=== PATIENT | female | born 1995 | race Caucasian/White ===

== ENCOUNTER 2018-03-17 05:42 | Outpatient (CLI) | payer SELFPAY ==
[~2018-03-17] VITALS: Ht 154.9 cm; Wt 82.6 kg
[~2018-03-17 05:42] MED LIST: ACHD5005 PO; CEPH500C PO; DCS100C PO; Ibuprofen PO; SMT80CT PO
[2018-03-25] MEDS ORDERED: IBUP-844 PO (08:36)
[2018-03-25] MEDS ORDERED: ACHD5005 PO (08:36)
== END 2018-03-17 12:00 ==
LOC: PREOP 05:42
PROVIDERS: ATTEND Obstetrics & Gynecology
DX: Z01.818 Encounter for other preprocedural examination (principal)

== ENCOUNTER 2018-03-23 06:02 | Inpatient (IN) | payer OTHER ==
[~2018-03-23] VITALS: Ht 154.9 cm; Wt 80.7 kg
[~2018-03-23 06:02] MED LIST changes: +CITRIC ACID/SOB CIT (BICITRA) 30 ML UDC ONE; +LACTATED RINGERS 1,000 ML IV ONE; +METOCLOPRAMIDE INJ 10 MG/2 ML (REGLAN) ONE; +NS (IVPB) 50 ML ONE; +ceFAZolin 1,000 MG (ANCEF) VIAL ONE; +raNItidine 50 MG/2 ML INJ (ZANTAC) ONE
--- OUTSIDE RECORDS SUMMARY | 2018-03-23 06:06 | XMS REPORT ---
Author Author AYALA CHAVIS [facility] Address [address] [place] [address] Care Team Providers Care Reflexologist Name Role Phone AYALA CHAVIS Unavailable PROBLEMS Type Condition ICD9-CM Code BXD23-JE Code Onset Dates Condition Status SNOMED Code Problem Supervision of normal first V22.0 Active 592584229 Problem Insufficient care V23.7 Active 9091460575591 Problem DTAP TEST V06.1 Active Problem Screening examination for venereal disease V74.5 Active 207161634 ALLERGIES No Information ENCOUNTERS Encounter Location Date Diagnosis [place] [id number] [place] [address] 66367- 7099 Feb, Third trimester Z33.1 [facility] [id number] [place] [address] 58695- 2005 Feb, Encounter for supervision of normal in third trimester Z34.93 [place] [id number] [place] [address] 65862- 6400 Feb, Third trimester Z33.1 [facility] [id number] [place] [address] 00909- 7576 January, Normal in multigravida Z34.80 [facility] [id number] [place] [address] 54176- 8738 January, Normal first in third trimester Z34.03 and Encounter for immunization Z23 [place] [id number] [place] [address] 50367- 5154 Dec, Normal in multigravida Z34.80 [place] [id number] [place] [address] 87724- 4425 Dec, care in second trimester Z34.92 [facility] [address] [address] 7969 Nov, Normal in multigravida Z34.80 [facility] [address] [address] 5661 Oct, [facility] [address], [place] [address]- 0201 Oct, [facility] [id number] [place] [address] 70433- 7608 Oct, [facility] [id number] [place] [address] 84948- 3072 Oct, DTAP TEST V06.1 ; Normal in multigravida Z34.80 and care in second trimester Z34.92 [facility] [address], [place] [address] 4389 Oct, [facility] [address] [address]- 6923 Oct, Encounter for test Z32.00 [facility] [address] [address]- 7937 Feb, [facility] [address], [place] [address]- 3216 Feb, [facility] [address], [place] [address]- 0827 Feb, [facility] [address], [place] [address]- 6317 Feb, [facility] [id number] [address]- 9085 Feb, [facility] [address], [place] [address]- 3271 Feb, [facility] [address], [place] [address]- 7765 January, [facility] [address] [id number] [place] [address]- 5617 January, [facility] [place] [facility] [address] [id number] [place] [address]- 6272 January, [facility] [place] [facility] [address] [id number] [place] January, [facility] [place] [facility] [address] [id number] [place] [address]- 7333 January, [facility] [place] [facility] [address] [id number] [place] [address]- 3843 January, [facility] [place] [facility] [address] [id number] [place] [address]- 3578 January, [facility] [place] [facility] [address] [id number] [place] [address]- 6832 January, [facility] [place] [facility] [address] [id number] [place] [address]- 0447 January, [facility] [place] [facility] [address] [id number] [place] [address]- 3413 Dec, [facility] [place] [facility] [address] [id number] [place] [address]- 9138 Dec, [facility] [place] [facility] [address] [id number] [place] [address]- 2699 Dec, [facility] [place] [facility] [address] [id number] [place] [address]- 9914 Dec, [facility] [place] [facility] [address] [id number] [place] [address]- 4391 Nov, [facility] [place] [facility] [address] [id number] [place] [address]- 0126 Nov, [facility] [place] [facility] [address] [id number] [place] [address]- 2690 Nov, [facility] [place] [facility] [address] [id number] [address]- 1345 Nov, [facility] [address] [id number] [place] [address]- 8326 Oct, [facility] [address] [id number] [place] 9766 Oct, [facility] [address] [facility] [id number] [place] [address]- 2296 Oct, [facility] [address] [id number] [place] [address]- 0581 Oct, [facility] [address] [id number] [place] [address]- 9500 Sep, [facility] [address] [facility] [id number] [place] [address]- 6352 Sep, [facility] [address] [facility] [id number] [place] [address]- 1980 Sep, [facility] [address] [id number] [place] [address]- 9007 Sep, [facility] [address] [facility] [id number] [place] [address]- 4496 Sep, [facility] [address] [facility] [id number] [place] [address]- 9740 Sep, [facility] [address] [facility] [id number] [place] [address]- 1212 Sep, [facility] [address] [id number] [address]- 6948 Sep, [facility] [address] [id number] [place] [address]- 7502 Sep, [facility] [address] [facility] [id number] [address]- 4901 Sep, [facility] [address] [facility] [id number] [address]- 1639 Sep, IMMUNIZATIONS No Known Immunizations SOCIAL HISTORY Never Assessed REASON FOR VISIT PLAN OF CARE VITAL SIGNS MEDICATIONS Unknown Medications RESULTS No Results PROCEDURES No Known procedures INSTRUCTIONS MEDICATIONS ADMINISTERED No Known Medications MEDICAL (GENERAL) HISTORY Type Description Date Surgical History 02/2014 Hospitalization History childbirth
--- OUTSIDE RECORDS SUMMARY | 2018-03-23 06:06 | XMS REPORT ---
Author Author AYALA CHAVIS [facility] Address [address] [place] [address] Care Team Providers Care Control Board Operator Name Role Phone AYALA CHAVIS Unavailable PROBLEMS Type Condition ICD9-CM Code KAY55-AD Code Onset Dates Condition Status SNOMED Code Problem Supervision of normal first V22.0 Active 369593390 Problem Insufficient care V23.7 Active 4413781021488 Problem DTAP TEST V06.1 Active Problem Screening examination for venereal disease V74.5 Active 083312531 ALLERGIES No Information ENCOUNTERS Encounter Location Date Diagnosis [place] [id number] [place] [address] 87467- 5680 Feb, Third trimester Z33.1 [facility] [id number] [place] [address] 40976- 5049 Feb, Encounter for supervision of normal in third trimester Z34.93 [place] [id number] [place] [address] 33963- 2957 Feb, Third trimester Z33.1 [facility] [id number] [place] [address] 53438- 3900 January, Normal in multigravida Z34.80 [facility] [id number] [place] [address] 45179- 4867 January, Normal first in third trimester Z34.03 and Encounter for immunization Z23 [place] [id number] [place] [address] 41721- 6049 Dec, Normal in multigravida Z34.80 [place] [id number] [place] [address] 30954- 2207 Dec, care in second trimester Z34.92 [facility] [address], [place] [address]- 7547 Nov, Normal in multigravida Z34.80 [facility] [address], [place] [address]- 8566 Oct, [facility] [address], [place] [address]- 4725 Oct, [facility] [id number] [place] [address] 78284- 0052 Oct, [facility] [address] [place] [address] 42079- 8404 Oct, DTAP TEST V06.1 ; Normal in multigravida Z34.80 and care in second trimester Z34.92 [facility] [address], [place] [address]- 7949 Oct, [facility] [address], [place] [address]- 6137 Oct, Encounter for test Z32.00 [facility] [id number], [place] [address]- 8597 Feb, [facility] [address], [place] [address]- 3486 Feb, [facility] [address], [place] [address]- 3830 Feb, [facility] [address], [place] [address]- 6963 Feb, [facility] [id number], [place] [address]- 1590 Feb, [facility] [address], [place] [address]- 0410 Feb, [facility] [address], [place] [address]- 4705 January, [facility] [address] [id number] [place] [address]- 7445 January, [facility] [place] [facility] [address] [id number] [place] [address]- 2056 January, [facility] [place] [facility] [address] [id number] [place] 7086 January, [facility] [place] [facility] [address] [id number] [place] [address]- 1312 January, [facility] [place] [facility] [address] [id number] [place] [address]- 7248 January, [facility] [place] [facility] [address] [id number] [place] [address]- 5491 January, [facility] [place] [facility] [address] [id number] [place] [address]- 9703 January, [facility] [place] [facility] [address] [id number] [place] [address]- 3209 January, [facility] [place] [facility] [address] [id number] [place] [address]- 3283 Dec, [facility] [place] [facility] [address] [id number] [place] [address]- 8004 Dec, [facility] [place] [facility] [address] [id number] [place] [address]- 4161 Dec, [facility] [place] [facility] [address] [id number] [place] [address]- 5057 Dec, [facility] [place] [facility] [address] [id number] [place] [address]- 6407 Nov, [facility] [place] [facility] [address] [id number] [place] [address]- 1795 Nov, [facility] [place] [facility] [address] [id number] [place] [address]- 1865 Nov, [facility] [place] [facility] [address] [id number], [place] [address]- 9073 Nov, [facility] [address] [id number] [place] [address]- 4546 Oct, [facility] [address] [id number] [place] 2836 Oct, [facility] [address] [facility] [id number] [place] [address]- 6966 Oct, [facility] [address] [id number] [place] [address]- 0394 Oct, [facility] [address] [id number] [place] [address]- 5857 Sep, [facility] [address] [facility] [id number] [place] [address]- 9984 Sep, [facility] [address] [facility] [id number] [place] [address]- 5449 Sep, [facility] [address] [id number] [place] [address]- 8318 Sep, [facility] [address] [facility] [id number] [place] [address]- 0177 Sep, [facility] [address] [facility] [id number] [place] [address]- 1206 Sep, [facility] [address] [facility] [id number] [place] [address]- 5326 Sep, [facility] [address] [id number], [place] [address]- 1233 Sep, [facility] [address] [id number] [place] [address]- 3706 Sep, [facility] [address] [facility] [id number], [place] [address]- 6245 Sep, [facility] [address] [facility] [id number], [place] [address]- 8004 Sep, IMMUNIZATIONS No Known Immunizations SOCIAL HISTORY Never Assessed REASON FOR VISIT rx from lab results PLAN OF CARE VITAL SIGNS MEDICATIONS Medication Instructions Dosage Frequency Start Date End Date Duration Status Macrobid 100 mg Orally every 12 hrs 1 capsule with food 12h Oct, Oct, 7 day(s) Active RESULTS No Results PROCEDURES No Known procedures INSTRUCTIONS MEDICATIONS ADMINISTERED No Known Medications MEDICAL (GENERAL) HISTORY Type Description Date Surgical History 02/2014 Hospitalization History childbirth
--- OUTSIDE RECORDS SUMMARY | 2018-03-23 06:07 | XMS REPORT ---
Author Author RM VALADEZ [facility] Address [address] [place] [address] Care Team Providers Care Administration Physician Name Role Phone RORY RM Unavailable PROBLEMS Type Condition ICD9-CM Code RRX15-LP Code Onset Dates Condition Status SNOMED Code Problem Supervision of normal first V22.0 Active 026093147 Problem Insufficient care V23.7 Active 8028233234280 Problem DTAP TEST V06.1 Active Problem Screening examination for venereal disease V74.5 Active 203236372 ALLERGIES No Information ENCOUNTERS Encounter Location Date Diagnosis [place] [id number] [place] [address] 45529- 6696 Mar, [place] [id number] [place] [address] 81045- 8205 Feb, Third trimester Z33.1 [place] [address] [address]74- 7392 Feb, Encounter for supervision of normal in third trimester Z34.93 [place] [id number] [address]- 4358 Feb, Third trimester Z33.1 [place] [id number] [place] [address] 83414- 8836 January, Normal in multigravida Z34.80 [place] [address] 97847- 3543 January, Normal first in third trimester Z34.03 and Encounter for immunization Z23 [place] [id number] [place] [address] 61240- 0698 Dec, Normal in multigravida Z34.80 [place] [address] [address]- 4062 Dec, care in second trimester Z34.92 [facility] [address], [place] [address]- 7908 Nov, Normal in multigravida Z34.80 [facility] [address], [place] [address]- 6156 Oct, [facility] [address], [place] [address]- 1535 Oct, [facility] [address], [place] [address]- 0632 Oct, [facility] [address], [place] [address]- 7786 Oct, DTAP TEST V06.1 ; Normal in multigravida Z34.80 and care in second trimester Z34.92 [facility] [address], [place] [address]- 7438 Oct, [facility] [address], [place] [address]- 1524 Oct, Encounter for test Z32.00 [facility] [address], [place] [address]- 0415 Feb, [facility] [address], [place] [address]- 5376 Feb, [facility] [address], [place] [address]- 7178 Feb, [facility] [address], [place] [address]- 0465 Feb, [facility] [address], [place] [address]- 5771 Feb, [facility] [address], [place] [address]- 0628 Feb, [facility] [place] [facility] [address] [id number] [place] [address]- 5379 January, [facility] [address] [id number] [place] [address]- 7869 January, [facility] [address] [id number] [place] [address]- 1863 January, [facility] [address] [id number] [place] [address]- 7389 January, [facility] [address] [id number] [place] [address]- 1464 January, [facility] [address] [id number] [place] [address]- 9229 January, [facility] [address] [id number] [place] [address]- 6725 January, [facility] [address] [id number] [place] [address]- 1842 January, [facility] [address] [id number] [place] [address]- 6554 January, [facility] [address] [id number] [place] [address]- 9194 Dec, [facility] [place] [facility] [address] [id number] [place] [address]- 8928 Dec, [facility] [place] [facility] [address] [id number] [place] [address]- 1887 Dec, [facility] [place] [facility] [address] [id number] [place] [address]- 7043 Dec, [facility] [place] [facility] [address] [id number] [place] [address]- 1756 Nov, [facility] [place] [facility] [address] [id number] [place] [address]- 1091 Nov, [facility] [place] [facility] [address] [id number] [place] [address]- 2948 Nov, [facility] [address] [id number] [place] [address]- 2748 Nov, [facility] [place] [facility] [address] [id number] [place] [address]- 9067 Oct, [facility] [place] [facility] [address] [id number] [place] [address]- 2335 Oct, [facility] [place] [facility] [address] [id number] [place] [address]- 0944 Oct, [facility] [place] [facility] [address] [id number] [place] [address]- 3553 Oct, [facility] [place] [facility] [address] [id number] [place] [address]- 8830 Sep, [facility] [address] [id number] [place] [address]- 9749 Sep, [facility] [place] [facility] [address] [id number] [place] [address]- 0938 Sep, [facility] [place] [facility] [address] [id number] [place] [address]- 4805 Sep, [facility] [place] [facility] [address] [id number] [place] [address]- 7234 Sep, [facility] [place] [facility] [address] [id number] [place] [address]- 5674 Sep, [facility] [place] [facility] [address] [id number] [place] [address]- 0143 Sep, [facility] [place] [facility] [address] [id number] [place] [address]- 2602 Sep, [facility] [place] [facility] [address] [id number] [place] [address]- 8560 Sep, [facility] [place] [facility] [address] [id number] [place] [address]- 9258 Sep, [facility] [place] [facility] [address] [facility] [id number] [place] [address]- 4073 Sep, IMMUNIZATIONS No Known Immunizations SOCIAL HISTORY Never Assessed REASON FOR VISIT test (walk-in)--[facility] PLAN OF CARE VITAL SIGNS MEDICATIONS Unknown Medications RESULTS Name Result Date Reference Range TEST, URINE (IN HOUSE) 2017-10-21 RESULTS POSITIVE Lot # [id number] Control + Exp date 01/2019 PROCEDURES Procedure Date Ordered Result Body Site URINE TEST Oct 21, 2017 INSTRUCTIONS MEDICATIONS ADMINISTERED No Known Medications MEDICAL (GENERAL) HISTORY Type Description Date Surgical History 02/2014 Hospitalization History childbirth
--- OUTSIDE RECORDS SUMMARY | 2018-03-23 06:07 | XMS REPORT ---
Author Author AYALA CHAVIS [facility] Address [address] [place] [address] Care Team Providers Care Ibm Mainframe Systems Programmer Name Role Phone AYALA CHAVIS Unavailable PROBLEMS Type Condition ICD9-CM Code [id number] Code Onset Dates Condition Status SNOMED Code Problem Supervision of normal first V22.0 Active 610402822 Problem Insufficient care V23.7 Active 3715015385601 Problem DTAP TEST V06.1 Active Problem Screening examination for venereal disease V74.5 Active 736490735 ALLERGIES No Known Allergies ENCOUNTERS Encounter Location Date Diagnosis [place] [address] [address] Feb, Third trimester Z33.1 [facility] [address] [address] Feb, Encounter for supervision of normal in third trimester Z34.93 [place] [address] [place] [id number] [place] [address]- [address] Feb, Third trimester Z33.1 [facility] [address] [place] [id number] [place] [address] January, Normal in multigravida Z34.80 [facility] [address] [place] [id number] [place] [address] 2020[address]- 2297 January, Normal first in third trimester Z34.03 and Encounter for immunization Z23 [place] [address] [place] [id number] [place] [address] Dec, Normal in multigravida Z34.80 [place] [address] [place] [id number] [place] [address]- 5393 Dec, care in second trimester Z34.92 [facility] [address], [place] [address] Nov, Normal in multigravida Z34.80 [facility] [address], [place] [address] Oct, [facility] [address], [place] [address] Oct, [facility] [address], [place] [address] Oct, [facility] [address] [place] [address]- 5585 Oct, DTAP TEST V06.1 ; Normal in multigravida Z34.80 and care in second trimester Z34.92 [facility] [address], [place] [address] Oct, [facility] [address], [place] [address] 9[address] Oct, Encounter for test Z32.00 [facility] [address], [place] [address] Feb, [facility] [address], [place] [address] 100[address] Feb, [facility] [address], [place] [address] 9[address] Feb, [facility] [address], [place] [address]- 47[address] Feb, [facility] [address], [place] [address] 7237 Feb, [facility] [address], [place] [address] 9897 Feb, [facility] [address], [place] [address] January, [facility] [address] [id number] [place] [address] 487[address] January, [facility] [place] [facility] [address] [id number] [place] [address]- 9617 January, [facility] [place] [facility] [address] [id number] [place] [address] January, [facility] [place] [facility] [address] [id number] [place] [address]- 2412 January, [facility] [place] [facility] [address] [id number] [place] [address] January, [facility] [place] [facility] [address] [id number] [place] [address]- 477[address] January, [facility] [place] [facility] [address] [id number] [place] [address]- 2862 January, [facility] [place] [facility] [address] [id number] [place] [address]- 7248 January, [facility] [place] [facility] [address] [id number] [place] [address]- 0713 Dec, [facility] [place] [facility] [address] [id number] [place] [address]- 5044 Dec, [facility] [place] [facility] [address] [id number] [place] [address]- 4234 Dec, [facility] [place] [facility] [address] [id number] [place] [address]- 2197 Dec, [facility] [place] [facility] [address] [id number] [place] [address]- 5578 Nov, [facility] [place] [facility] [address] [id number] [place] [address]- 8985 Nov, [facility] [place] [facility] [address] [id number] [place] [address]- 1062 Nov, [facility] [place] [facility] [address] [id number] [place] [address]- 7345 Nov, [facility] [address] [id number] [place] [address]- 7616 Oct, [facility] [address] [id number] [place] [address]- 9416 Oct, [facility] [address] [id number] [place] [address]- 7726 Oct, [facility] [address] [id number] [place] [address]- 6979 Oct, [facility] [address] [id number] [place] [address]- 2359 Sep, [facility] [address] [id number] [place] [address]- 5038 Sep, [facility] [address] [id number] [place] [address]- 4657 Sep, [facility] [address] [id number] [place] [address]- 4538 Sep, [facility] [address] [id number] [place] [address]- 0[address] Sep, [facility] [address] [facility] [id number] [place] [address]- 1361 Sep, [facility] [address] [id number] [place] [address]- 6269 Sep, [facility] [address] [id number], [place] [address]- 3699 Sep, [facility] [address] [id number] [place] [address]- 7454 Sep, [facility] [address] [id number] [place] [address]- 3408 Sep, [facility] [address] [id number] [address]- [address]68 Sep, IMMUNIZATIONS No Known Immunizations SOCIAL HISTORY Never Assessed REASON FOR VISIT OB Flowsheet History--tcuppettRN PLAN OF CARE VITAL SIGNS MEDICATIONS Unknown Medications RESULTS No Results PROCEDURES No Known procedures INSTRUCTIONS MEDICATIONS ADMINISTERED No Known Medications MEDICAL (GENERAL) HISTORY Type Description Date Surgical History 02/2014 Hospitalization History childbirth
--- OUTSIDE RECORDS SUMMARY | 2018-03-23 06:07 | XMS REPORT | Continuity of Care Document ---
Author Author [facility] Address Unknown Phone Unavailable Allergies Active Description Code Type Severity Reaction Onset Reported/Identified Relationship to Patient Clinical Status Yes No Known Drug Allergies [id number] Drug Allergy Unknown N/A 03/17/2018 Medications There is no data. Problems Date Dx Coded Attending Type Code Diagnosis Diagnosed By 09/20/2013 NISHANT BUSTILLO APRN A V23.7 , HIGH RISK W/ INSUFFICIENT CARE 09/20/2013 DMITRY BUSTILLO APRNIDI A V23.7 , HIGH RISK W/ INSUFFICIENT CARE 09/20/2013 DMITRY BUSTILLO APRNIDI A V23.7 , HIGH RISK W/ INSUFFICIENT CARE 09/20/2013 EZE VALADEZ DOA K V23.7 , HIGH RISK W/ INSUFFICIENT CARE 09/20/2013 EZE VALADEZ DOA K V23.7 , HIGH RISK W/ INSUFFICIENT CARE 09/20/2013 EZE VALADEZ DOA K V23.7 , HIGH RISK W/ INSUFFICIENT CARE 09/20/2013 PARTHA SIDDIQI, AYALA Orozco V23.7 , HIGH RISK W/ INSUFFICIENT CARE 09/20/2013 EZE VALADEZ DOA K V23.7 , HIGH RISK W/ INSUFFICIENT CARE 10/04/2013 DMITRY BUSTILLO APRNIDI A V74.5 STD SCREEN 10/04/2013 IWONA SOTOMAYOR NISHANT A V74.5 STD SCREEN 10/04/2013 RORY NICOLAS RM K V74.5 STD SCREEN 10/04/2013 EZE VALADEZ DOA K V74.5 STD SCREEN 10/04/2013 EZE VALADEZ DOA K V74.5 STD SCREEN 10/04/2013 AYALA CHAVIS MD V74.5 STD SCREEN 10/04/2013 EZE VALADEZ DOA K V74.5 STD SCREEN 11/01/2013 RORY NICOLAS RM K V22.0 , NORMAL FIRST 11/01/2013 EZE VALADEZ DOA K V22.0 , NORMAL FIRST 11/01/2013 AYALA CHAVIS MD V22.0 , NORMAL FIRST 11/01/2013 EZE VALADEZ DOA Pawel V22.0 , NORMAL FIRST 12/20/2013 RM VALADEZ DO V06.1 TDAP DX 12/20/2013 PARTHA SIDDIQI, AYALA Orozco V06.1 TDAP DX 12/20/2013 RORY NICOLASRM V06.1 TDAP DX 04/17/2015 NISHANT BUSTILLO SYSTEMS TEST ENGINEER Ot V23.7 04/17/2015 IWONA, NISHANT A SYSTEMS TEST ENGINEER Ot V28.89 04/17/2015 DMITRY BUSTILLOIDI A SYSTEMS TEST ENGINEER Ot V23.7 04/17/2015 NISHANT BUSTILLO SYSTEMS TEST ENGINEER Ot V28.89 03/10/2018 AYALA CHAVIS MD, Ot Z34.93 ENCNTR FOR SUPRVSN OF NORMAL PREG, UNSP, 03/10/2018 AYALA CHAVIS MD, Ot Z3A.35 35 WEEKS GESTATION OF 03/10/2018 AYALA CHAVIS MD, Ot O99.89 OTH DISEASES AND CONDITIONS COMPL PREG/C 03/10/2018 AYALA CHAVIS MD, Ot Z3A.35 35 WEEKS GESTATION OF 03/10/2018 AYALA CHAVIS MD, Ot O99.89 OTH DISEASES AND CONDITIONS COMPL PREG/C 03/10/2018 AYALA CHAVIS MD Ot R10.2 PELVIC AND PERINEAL PAIN 03/10/2018 AYALA CHAVIS MD, Ot Z3A.35 35 WEEKS GESTATION OF 03/18/2018 MOHINDER CASTLE DO Ot Z01.818 ENCOUNTER FOR OTHER PREPROCEDURAL EXAMIN Procedures Code [place] [address] UA OB DIP 09/20/2013 28639 US OB - COMPLETE >14 WEEKS 09/20/2013 34892 UA OB DIP 10/04/2013 87031 ROUTINE VENIPUNCTURE 10/05/2013 71598 CULTURE URINE 10/05/2013 TETRA TETRA SCREEN 10/06/2013 12483 US OB - FOLLOW UP 10/10/2013 58454 GC/CHLAM URINE (STATE) 10/10/2013 26638 ROUTINE VENIPUNCTURE 11/29/2013 59169 UA OB DIP 11/29/2013 74330 CBC 11/29/2013 65060 GLUCOSE AKIRA 1 HOUR 11/29/2013 11234 UA OB DIP 12/20/2013 51903 UA OB DIP 01/03/2014 30758 UA OB DIP 01/17/2014 84950 UA OB DIP 01/31/2014 24416 CULTURE GROUP B STREP VAG 02/02/2014 45868 UA OB DIP 02/07/2014 97816 UA OB DIP 02/14/2014 81081 UA OB DIP 02/21/2014 Results Test Result Range TSH - 10/27/17 16:28 TSH 1.02 mIU/L NRG RUBELLA IMMUNE STATUS - 10/27/17 16:28 RUBELLA ANTIBODY (IGG) 3.15 index NRG CULTURE, GENITAL - 10/27/17 16:28 CULTURE, GENITAL SEE NOTE NRG GLUCOSE AKIRA 1 HOUR - 12/22/17 16:08 GLUCOSE, POSTPRANDIAL/ 1 HOUR 104 mg/dL See Note: CBC - 12/22/17 16:08 WHITE BLOOD CELL COUNT 7.7 Thousand/uL 3.8-10.8 RED BLOOD CELL COUNT 3.71 Million/uL 3.80-5.10 HEMOGLOBIN 11.5 g/dL 11.7-15.5 HEMATOCRIT 34.5 % 35.0-45.0 MCV 93.0 fL 80.0-100.0 MCH 31.0 pg 27.0-33.0 MCHC 33.3 g/dL 32.0-36.0 RDW 12.0 % 11.0-15.0 PLATELET COUNT 228 Thousand/uL 140-400 MPV 10.4 fL 7.5-12.5 ABSOLUTE NEUTROPHILS 5898 cells/uL 1427-0100 ABSOLUTE LYMPHOCYTES 1147 cells/uL 850-3900 ABSOLUTE MONOCYTES 454 cells/uL 200-950 ABSOLUTE EOSINOPHILS 193 cells/uL 15-500 ABSOLUTE BASOPHILS 8 cells/uL 0-200 NEUTROPHILS 76.6 % NRG LYMPHOCYTES 14.9 % NRG MONOCYTES 5.9 % NRG EOSINOPHILS 2.5 % NRG BASOPHILS 0.1 % NRG Encounters ACCT No. Visit Date/Time Discharge Status Pt. Type Provider Facility Loc./Unit Complaint [id number] 02/21/2014 15:44:00 02/21/2014 23:59:59 CLS Outpatient RM VALADEZ DO [id number] 01/31/2014 15:06:00 01/31/2014 23:59:59 CLS Outpatient AYALA CHAVIS MD [id number] 01/17/2014 14:13:00 01/17/2014 23:59:59 CLS Outpatient RM VALADEZ DO [id number] 11/29/2013 13:49:00 11/29/2013 23:59:59 CLS Outpatient RM VALADEZ DO [id number] 11/01/2013 14:00:00 11/01/2013 23:59:59 CLS Outpatient RM VALADEZ DO [id number] 10/05/2013 13:42:00 10/05/2013 23:59:59 CLS Outpatient NISHANT BUSTILLO APRN [id number] 10/04/2013 13:55:00 10/04/2013 23:59:59 CLS Outpatient NISHANT BUSTILLO APRN [id number] 09/20/2013 13:41:00 09/20/2013 23:59:59 CLS Outpatient NISHANT BUSTILLO APRN [id number] 03/14/2018 16:40:00 03/14/2018 23:59:59 CLS Outpatient NORRIS SPIVEY [facility] [id number] 12/22/2017 15:00:00 Document Registration [id number] 2017 15:30:00 Document Registration [id number] 03/17/2018 05:42:00 03/17/2018 12:00:00 DIS Outpatient TIN NICOLAS MOHINDER Esvin [facility] PREOP [id number] 03/09/2018 16:13:00 03/09/2018 23:59:59 CLS Outpatient AYALA CHAVIS MD [facility] RAD THIRD TRIMESTER [id number] 02/26/2014 23:08:00 03/01/2014 15:00:00 DIS Inpatient [id number] 10/10/2013 10:44:00 10/10/2013 23:59:59 CLS Outpatient NISHANT BUSTILLO APRN [facility] RAD [id number] 09/26/2013 13:41:00 09/26/2013 23:59:59 CLS Outpatient NISHANT BUSTILLO APRN [facility] RAD [id number] 09/13/2013 12:13:00 09/13/2013 14:09:00 DIS Emergency [id number] 03/23/2018 07:30:00 PEN Preadmit MOHINDER CASTLE DO PREVIOUS, OVARIAN CANCER REDUCTION
--- OUTSIDE RECORDS SUMMARY | 2018-03-23 06:07 | XMS REPORT ---
Author Author AYALA CHAVIS [facility] Address [address] [place] [address] Care Team Providers Care Commercial Hvac Technician Name Role Phone AYALA CHAVIS Unavailable PROBLEMS Type Condition ICD9-CM Code JSR37-JJ Code Onset Dates Condition Status SNOMED Code Problem Supervision of normal first V22.0 Active 562271789 Problem Insufficient care V23.7 Active 4896254602040 Problem DTAP TEST V06.1 Active Problem Screening examination for venereal disease V74.5 Active 520723430 ALLERGIES No Known Allergies ENCOUNTERS Encounter Location Date Diagnosis [place] [address] [address] Feb, Third trimester Z33.1 [facility] [address] [address]- [address] Feb, Encounter for supervision of normal in third trimester Z34.93 [place] [address] [place] [id number] [place] [address]- 15[address] Feb, Third trimester Z33.1 [place] [address] [place] [id number] [place] [address]- [address] January, Normal in multigravida Z34.80 [facility] [address] [place] [id number] [place] [address]- 7740 January, Normal first in third trimester Z34.03 and Encounter for immunization Z23 [place] [address] [place] [id number] [place] [address]- 0526 Dec, Normal in multigravida Z34.80 [place] [address] [place] [id number] [place] [address]- 7769 Dec, care in second trimester Z34.92 [facility] [address], [place] [address]- 8680 Nov, Normal in multigravida Z34.80 [facility] [address], [place] [address]- 98[address] Oct, [facility] [address], [place] [address]- 8406 Oct, [facility] [address], [place] [address]- 4007 Oct, [facility] [address] [place] [address]- 7515 Oct, DTAP TEST V06.1 ; Normal in multigravida Z34.80 and care in second trimester Z34.92 [facility] [address], [place] [address]- 6880 Oct, [facility] [address], [place] [address]- 2736 Oct, Encounter for test Z32.00 [facility] [address], [place] [address]- 9[address] Feb, [facility] [address], [place] [address]- 5684 Feb, [facility] [address], [place] [address]- 0984 Feb, [facility] [address], [place] [address]- 8261 Feb, [facility] [address], [place] [address]- 1457 Feb, [facility] [address], [place] [address]- 3572 Feb, [facility] [address], [place] [address]- 1471 January, [facility] [address] [id number] [place] [address]- 6015 January, [facility] [place] [facility] [address] [id number] [place] [address]- 1548 January, [facility] [place] [facility] [address] [id number] [place] [address] January, [facility] [place] [facility] [address] [id number] [place] [address]- 1473 January, [facility] [place] [facility] [address] [id number] [place] 8933 January, [facility] [place] [facility] [address] [id number] [place] [address]- 6653 January, [facility] [place] [facility] [address] [id number] [place] [address]- 3875 January, [facility] [place] [facility] [address] [id number] [place] [address]- 7325 January, [facility] [place] [facility] [address] [id number] [place] [address]- 7149 Dec, [facility] [place] [facility] [address] [id number] [place] [address]- 3781 Dec, [facility] [place] [facility] [address] [id number] [place] [address]- 1454 Dec, [facility] [place] [facility] [address] [id number] [place] [address]- 0183 Dec, [facility] [place] [facility] [address] [id number] [place] [address]- 5722 Nov, [facility] [place] [facility] [address] [id number] [place] [address]- 9287 Nov, [facility] [place] [facility] [address] [id number] [place] [address]- 2372 Nov, [facility] [place] [facility] [address] [id number] [place] [address]- 1449 Nov, [facility] [address] [id number] [place] [address]- 2696 Oct, [facility] [address] [id number] [place] [address]- 3616 Oct, [facility] [address] [id number] [place] [address]- 8796 Oct, [facility] [address] [id number] [place] [address]- 8389 Oct, [facility] [address] [id number] [place] [address]- 0051 Sep, [facility] [address] [id number] [place] [address]- 9849 Sep, [facility] [address] [id number] [place] [address]- 3160 Sep, [facility] [address] [id number] [place] [address]- 4095 Sep, [facility] [address] [id number] [place] [address]- 2816 Sep, [facility] [address] [facility] [id number] [place] [address]- 7163 Sep, [facility] [address] [id number] [place] [address]- 9622 Sep, [facility] [address] [id number], [place] [address]- [address] Sep, [facility] [address] [id number] [place] [address]- 4740 Sep, [facility] [address] [id number] [place] [address]- 6888 Sep, [facility] [address] [id number] [address]- [address] Sep, IMMUNIZATIONS No Known Immunizations SOCIAL HISTORY Never Assessed REASON FOR VISIT OB-intake -- jd lainez PLAN OF CARE Activity Details Follow Up 4 Weeks Reason: VITAL SIGNS Height 61 in 2017 Weight 154.0 lbs 2017 Temperature 97.0 degrees Fahrenheit 2017 BMI 29.098 kg/m2 2017 Blood pressure systolic 120 mmHg 2017 Blood pressure diastolic 78 mmHg 2017 MEDICATIONS Unknown Medications RESULTS No Results PROCEDURES Procedure Date Ordered Result Body Site ASSAY THYROID STIM HORMONE 2017 RUBELLA ANTIBODY 2017 URINE CULTURE/COLONY COUNT 2017 VENIPUNCT, ROUTINE* 2017 URINALYSIS, AUTO, W/O SCOPE 2017 COMPLETE CBC W/AUTO DIFF WBC 2017 BLOOD TYPING, ABO 2017 CULTURE, BACTERIA, OTHER 2017 TRICHOMONAS ASSAY W/OPTIC 2017 No Charge 2017 BLOOD TYPING, RH (D) 2017 RBC ANTIBODY SCREEN 2017 INSTRUCTIONS MEDICATIONS ADMINISTERED No Known Medications MEDICAL (GENERAL) HISTORY Type Description Date Surgical History 02/2014 Hospitalization History childbirth
[2018-03-23] MEDS ORDERED: ceFAZolin INJECTION 1,000 MG in NS (IVPB) 50 ML IV ONE (06:15)
[2018-03-23 06:21] VITALS: BP 128/80
[2018-03-23] MEDS ORDERED: PREN-142 PO (06:24)
[2018-03-23] MEDS: LACTATED RINGERS 1,000 ML IV PRN ×2 (06:30→07:54)
[2018-03-23] MEDS ORDERED: METOCLOPRAMIDE INJ 10 MG/2 ML (REGLAN) IV ONE (06:30)
[2018-03-23] MEDS ORDERED: CITRIC ACID/SOB CIT (BICITRA) 30 ML UDC PO ONE (06:30)
[2018-03-23] MEDS ORDERED: raNItidine 50 MG/2 ML INJ (ZANTAC) IM/IV ONE (06:30)
[2018-03-23 06:38] LABS: BILIRUBIN,URINE NEGATIVE (NEGATIVE); CLARITY,URINE CLEAR; COLOR,URINE YELLOW; GLUCOSE, URINE (UA) NEGATIVE (NEGATIVE); KETONES,URINE NEGATIVE (NEGATIVE); LEUKOCYTE ESTERASE ,URINE 3+ (NEGATIVE); NITRITE,URINE NEGATIVE (NEGATIVE); PH,URINE 7 (5-9); PROTEIN,URINE NEGATIVE (NEGATIVE); UROBILINOGEN,URINE NORMAL (NORMAL)
[2018-03-23] MEDS ORDERED: fentaNYL INJECTION 100 MCG/2 ML AMP ONE (06:40)
[2018-03-23 06:41] LABS: BASOPHILS % (AUTO) 0 % (0-10); EOSINOPHILS # (AUTO) 0.1 10^3/uL (0.0-0.3); EOSINOPHILS % (AUTO) 1 % (0-10); HEMATOCRIT 35 % (35-52); HEMOGLOBIN 11.7 G/DL (11.5-16.0); LYMPHOCYTES # (AUTO) 1.8 X 10^3 (1.0-4.0); LYMPHOCYTES % (AUTO) 18 % (12-44); MEAN CORPUSCULAR HEMOGLOBIN 29 PG (25-34); MEAN CORPUSCULAR HGB CONC 34 G/DL (32-36); MEAN CORPUSCULAR VOLUME 87 FL (80-99); MONOCYTES # (AUTO) 0.8 X 10^3 (0.0-1.0); MONOCYTES % (AUTO) 8 % (0-12); NEUTROPHILS # (AUTO) 7.7 X 10^3 (1.8-7.8); NEUTROPHILS % (AUTO) 74 % (42-75); PLATELET COUNT 200 10^3/uL (130-400); RED BLOOD COUNT 3.98 10^6/uL (4.35-5.85); RED CELL DISTRIBUTION WIDTH 13.3 % (10.0-14.5); WHITE BLOOD COUNT 10.4 10^3/uL (4.3-11.0)
[2018-03-23 06:57] LABS: BACTERIA,URINE MODERATE /HPF
[2018-03-23 07:14] VITALS: BP 124/66
--- NOTE | 2018-03-23 07:26 | History & Physical-OB/GYN ---
History of Present Illness History of Present Illness Reason for visit/HPI Previous section, for repeat Date of Admission Mar 23, 2018 at 06:02 Date Seen by Provider: Mar 23, 2018 Time Seen by Provider: 07:09 I consulted on this patient on 03/23/18 07:09 Attending Physician Mohinder Castle DO Admitting Physician Gilmer Vazquez MD Consult Allergies and Home Medications Allergies Coded Allergies: No Known Drug Allergies (Unverified , 03/17/18) Home Medications Vit No.124/Iron/FA 1 Each Tablet, 1 EACH PO DAILY, (Reported) Patient Home Medication List Home Medication List Reviewed: Yes Past Kkwmfwe-Xmccba-Zaufgs Hx Patient Social History Marrital Status: single Number of Children: 1 Number of living children: 1 Employed/Student: unemployed Alcohol Use: Denies Use Smoking Status: Never a Smoker Recent Foreign Travel: No Contact w/other who traveled: No Recent Hopitalizations: No Recent Infectious Disease Expo: No Immunizations Up To Date Tetanus Booster (TDap): Less than 5yrs (not during ) Seasonal Allergies Seasonal Allergies: No Surgeries Yes (cs) Section Respiratory No Cardiovascular No Neurological No Reproductive System Expected Date of Delivery: Mar 29, 2018 Hx Reproductive Disorders: No Sexually Transmitted Disease: No HIV/AIDS: No Female Reproductive Disorders: Denies Genitourinary No Gastrointestinal Yes Gastroesophageal Reflux, Chronic Constipation, Chronic Diarrhea Musculoskeletal No Endocrine History of Endocrine Disorders: No HEENT History of HEENT Disorders: No Loss of Vision: Denies Hearing Impairment: Denies Cancer No Psychosocial History of Psychiatric Problem: No Integumentary History of Skin or Integumenta: No Blood Transfusions History of Blood Disorders: No Adverse Reaction to a Blood Tr: No (N/A) Family Medical History Significant Family History: No Pertinent Family Hx Constitutional: no symptoms reported Genitourinary: other (Good FM, no bleeding, rare contractions) : Yes Expected Date of Delivery: Mar 29, 2018 Musculoskeletal: back pain A+/1, Hep B- HIV - Rub I RPR NR uncomplicated. Late PNC due to insurance issues. US at 37 weeks wnl GBS - All Other Systems Reviewed Negative Unless Noted: Yes Physical Exam Physical Exam Vital Signs Capillary Refill : Labs Laboratory Tests 03/23/18 06:15: Urine Color YELLOW, Urine Clarity CLEAR, Urine pH 7, Urine Specific [place] 1.010L, Urine Protein NEGATIVE, Urine Glucose (UA) NEGATIVE, Urine Ketones NEGATIVE, Urine Nitrite NEGATIVE, Urine Bilirubin NEGATIVE, Urine Urobilinogen NORMAL, Urine Leukocyte Esterase 3+H, Urine RBC (Auto) NEGATIVE, Urine RBC NONE , Urine WBC 10-25H, Urine Squamous Epithelial Cells 10-25H, Urine Crystals NONE , Urine Bacteria MODERATEH, Urine Casts NONE, Urine Mucus NEGATIVE, Urine Culture Indicated YES 03/23/18 06:28: White Blood Count 10.4, Red Blood Count 3.98L, Hemoglobin 11.7, Hematocrit 35, Mean Corpuscular Volume 87, Mean Corpuscular Hemoglobin 29, Mean Corpuscular Hemoglobin Concent 34, Red Cell Distribution Width 13.3, Platelet Count 200, Mean Platelet Volume 11.0H, Neutrophils (%) (Auto) 74, Lymphocytes (%) (Auto) 18 , Monocytes (%) (Auto) 8, Eosinophils (%) (Auto) 1, Basophils (%) (Auto) 0, Neutrophils # (Auto) 7.7, Lymphocytes # (Auto) 1.8, Monocytes # (Auto) 0.8, Eosinophils # (Auto) 0.1, Basophils # (Auto) 0.0 General Appearance: No Apparent Distress, WD/WN Respiratory: Chest Non Tender, Lungs Clear Cardiovascular: Regular Rate, Rhythm, Other (tr edema) Abdominal: normal bowel sounds Pelvic Exam: other (NE) Comments FHT 140s reactive, regular mild contractions Assessment/Plan Assessment and Plan Previous section. at 39 1/7 weeks for repeat Caesarean section Risks bleeding, infection, injury to bowel bladder and ureter. Risk to baby, Risk of blood clots, anesthesia risks. Preop antibiotics and SCDs. Consents signed. [facility] Admission Diagnosis Admission Status: Inpatient Order (span 2 midnights) Reason for Inpatient Admission: post operative Clinical Quality Measures DVT/VTE Risk/Contraindication: Risk Factor Score Per Nursin RFS Level Per Nursing on Admit: 2=Moderate MOHINDER CASTLE DO Mar 23, 2018 07:26
[2018-03-23] MEDS ORDERED: ONDANSETRON 4 MG/2 ML (SDV) Z0FRAN ONE (07:47)
[2018-03-23] MEDS ORDERED: DEXAMETHASONE 10 MG/ML (DECADRON) 1 ML VIAL ONE (07:47)
[2018-03-23] MEDS ORDERED: OXYTOCIN/NORMAL SALINE 1,000 ML IV ONE (08:15)
[2018-03-23] MEDS: KETOROLAC 30 MG/ML VIAL IVP SCH ×3 (08:15→20:06)
[2018-03-23] MEDS ORDERED: KETOROLAC 30 MG/ML VIAL ONE (08:15)
[2018-03-23] MEDS ORDERED: LACTATED RINGERS 1,000 ML IV ONE (08:15)
[2018-03-23] MEDS ORDERED: BUPIVACAINE 0.5% 30 ML (SENSORCAINE) VIAL ONE (08:16)
[2018-03-23] MEDS ORDERED: D5 LR IV SOLUTION 1,000 ML IV SCH (08:40)
[2018-03-23] MEDS ORDERED: OXYTOCIN/NORMAL SALINE 500 ML IV SCH (08:40)
[2018-03-23] MEDS ORDERED: MEASLES,MUMPS,RUBELLA 1 EA INJ SC SCH (08:45)
[2018-03-23] MEDS ORDERED: TETANUS,DIPTH,PERTUSS P/F (BOOSTRIX) 0.5 ML VIAL IM SCH (08:45)
[2018-03-23] MEDS ORDERED: HYDROmorphone 1 MG/ML (DILAUDID) 1 ML SYRINGE IV PRN (08:45)
[2018-03-23] MEDS ORDERED: ONDANSETRON 4 MG/2 ML (SDV) Z0FRAN IVP PRN (08:45)
--- NOTE | 2018-03-23 08:45 | Cesarean Section Operative ---
Procedure Procedure Note Pre-operative Diagnosis: Irineo Velarde is a 22 /Para 2/1 ,Gestational Age 39 1/7 weeks with history of previous section Post-operative Diagnosis: same Procedure: Repeat low transverse section, nuchal cord x 1 reduced. probably polyhydramnios, very thin lower uterine segment Physician: MOHINDER CASTLE [employer] Internship: Richard Vazquez MD Estimated blood loss: 400 mL Disposition: stable Findings: Viable female , Apgars 3/5/8, weight 6#8oz, intact placenta, 3vc, normal appearing uterus, tubes, and ovaries. Indications:Irineo Velarde is a 22 /Para 2/1 ,Gestational Age 39 1/7 weeks with history of previous section, presenting for repeat section. Procedure Details: The patient was seen in pre-op and the procedure was discussed with the patient in full, including the risks, benefits, and alternatives. All questions were answered. The patient was taken to the operating room and a time out was performed, verifying patient and procedure. After spinal anesthesia was placed by our anesthesia colleagues, the patient was placed in the dorsal supine with leftward tilt for uterine displacement.~ Her abdomen was then prepped and draped in the typical sterile fashion. A Pfannenstiel skin incision was made using a scalpel and carried down through the underlying fascia. The fascia was incised in the midline and tented up using Charlene clamps. On both the inferior and superior fascia side the rectus muscle was dissected off bluntly and sharply using Mcintyre scissors. The peritoneum was identified and entered bluntly in the midline. This was then stretched laterally using manual strength. After entering the abdominal cavity and confirming lack of intraperitoneal adhesions, an extra large Ignacio retractor was placed and the lower uterine segment was visualized. A bladder flap was created with the use of Metzenbaum scissors.~ A scalpel was utilized to make a low transverse uterine incision which was noted to be very thin. Amniotomy was performed with an Allis clamp with return of copious, clear fluid. The infant's head was grasped and brought to the level of the incision. Fundal pressure was applied and was delivered without difficulty. Mouth and nares were suctioned with bulb suction. There was a nuchal cord that was reduced. After the umbilical cord was clamped and cut, the infant was handed off to the pediatric staff. A sample of cord blood was then obtained. The placenta was delivered intact via uterine massage. The uterus was cleared of all clots and debris. The uterine incision was closed using 0 Vicryl in a running locked fashion. A second imbricated layer was placed using 0 Vicryl in a running fashion as well. The uterus was flexed forward and the posterior rectouterine space was inspected and cleared of all clots and debris. Again the hysterotomy site was examined and hemostasis was observed. The bilateral tubes and ovaries appeared normal. The abdominal gutters were cleared of all clots and debris. A final check of the uterine incision showed it to be hemostatic. The peritoneum was closed using 3-0 Vicryl in a running fashion. The fascia was closed with 0 Vicryl in a running fashion. The subcutaneous space was hemostatic , and irrigated. The subcutaneous space was closed with 3-0 Vicryl in several single interrupted stitches. The skin was then closed using 4-0 Monocryl in a running subcuticular fashion. The skin edges were reapproximated together and were hemostatic. A pressure dressing was applied. All sponge, lap and needle counts were correct at the end of the procedure per nursing. Vitals - Labs Vital Signs - I&O Vital Signs Date Time Temp Pulse Resp B/P (MAP) Pulse Ox O2 Delivery O2 Flow Rate FiO2 03/23/18 07:14 96.4 98 18 124/66 (85) Room Air 03/23/18 06:21 98.5 93 18 128/80 (96) Room Air Labs Laboratory Tests 03/23/18 06:15: Urine Color YELLOW, Urine Clarity CLEAR, Urine pH 7, Urine Specific [place] 1.010L, Urine Protein NEGATIVE, Urine Glucose (UA) NEGATIVE, Urine Ketones NEGATIVE, Urine Nitrite NEGATIVE, Urine Bilirubin NEGATIVE, Urine Urobilinogen NORMAL, Urine Leukocyte Esterase 3+H, Urine RBC (Auto) NEGATIVE, Urine RBC NONE , Urine WBC 10-25H, Urine Squamous Epithelial Cells 10-25H, Urine Crystals NONE , Urine Bacteria MODERATEH, Urine Casts NONE, Urine Mucus NEGATIVE, Urine Culture Indicated YES 03/23/18 06:28: White Blood Count 10.4, Red Blood Count 3.98L, Hemoglobin 11.7, Hematocrit 35, Mean Corpuscular Volume 87, Mean Corpuscular Hemoglobin 29, Mean Corpuscular Hemoglobin Concent 34, Red Cell Distribution Width 13.3, Platelet Count 200, Mean Platelet Volume 11.0H, Neutrophils (%) (Auto) 74, Lymphocytes (%) (Auto) 18 , Monocytes (%) (Auto) 8, Eosinophils (%) (Auto) 1, Basophils (%) (Auto) 0, Neutrophils # (Auto) 7.7, Lymphocytes # (Auto) 1.8, Monocytes # (Auto) 0.8, Eosinophils # (Auto) 0.1, Basophils # (Auto) 0.0 MOHINDER CASTLE DO Mar 23, 2018 08:45
[2018-03-23] MEDS ORDERED: METOCLOPRAMIDE INJ 10 MG/2 ML (REGLAN) IV PRN (09:15)
[2018-03-23] MEDS ORDERED: diphenhydrAMINE 50 MG/ML INJ (BENADRYL) IV PRN (09:15)
[2018-03-23] MEDS ORDERED: NALOXONE 0.4 MG/ML 1 ML (NARCAN) VIAL IV PRN ×2 (09:15)
[2018-03-23] MEDS ORDERED: ONDANSETRON 4 MG/2 ML (SDV) Z0FRAN IV PRN (09:15)
[2018-03-23 10:03] VITALS: BP 119/82
[2018-03-23] MEDS: HYDROcodone/APAP 5 MG/325 MG (LORTAB) TAB PO PRN ×2 (11:42→16:11)
[2018-03-23 11:45] VITALS: BP 106/63
[2018-03-23] MEDS: CATHETER FLUSH 10 ML SYR IV PRN (14:13)
[2018-03-23 16:00] VITALS: BP 135/83
[2018-03-23] MEDS: DOCUSATE SODIUM 100 MG (COLACE) CAP PO SCH ×2 (20:01→20:06)
[2018-03-23 20:06] VITALS: BP 110/64
[2018-03-24 00:02] VITALS: BP 100/57
[2018-03-24] MEDS: HYDROcodone/APAP 5 MG/325 MG (LORTAB) TAB PO PRN ×5 (00:02→20:47)
[2018-03-24] MEDS: CATHETER FLUSH 10 ML SYR IV PRN (02:15)
[2018-03-24] MEDS: KETOROLAC 30 MG/ML VIAL IVP SCH (02:15)
[2018-03-24 05:30] VITALS: BP 108/62
[2018-03-24 06:10] LABS: BASOPHILS % (AUTO) 0 % (0-10); EOSINOPHILS % (AUTO) 0 % (0-10); HEMATOCRIT 32 % (35-52); HEMOGLOBIN 10.7 G/DL (11.5-16.0); LYMPHOCYTES % (AUTO) 12 % (12-44); MEAN CORPUSCULAR HEMOGLOBIN 30 PG (25-34); MEAN CORPUSCULAR HGB CONC 34 G/DL (32-36); MEAN CORPUSCULAR VOLUME 88 FL (80-99); MEAN PLATELET VOLUME 10.7 FL (7.4-10.4); MONOCYTES # (AUTO) 1.2 X 10^3 (0.0-1.0); MONOCYTES % (AUTO) 7 % (0-12); NEUTROPHILS # (AUTO) 13.8 X 10^3 (1.8-7.8); NEUTROPHILS % (AUTO) 81 % (42-75); PLATELET COUNT 201 10^3/uL (130-400); RED CELL DISTRIBUTION WIDTH 13.2 % (10.0-14.5); WHITE BLOOD COUNT 17.1 10^3/uL (4.3-11.0)
[2018-03-24] MEDS: IBUPROFEN 600 MG (MOTRIN) TAB PO SCH ×3 (07:59→20:47)
[2018-03-24] MEDS: DOCUSATE SODIUM 100 MG (COLACE) CAP PO SCH ×2 (08:00→20:47)
[2018-03-24 08:04] VITALS: BP 98/57
--- NOTE | 2018-03-24 08:11 | Postpartum Progress Note ---
Post Op Post-operative Day #1 s/p RLTCS. Patient had original asked for salpingectomy and changed her mind due to the permanency. We discussed other, non permanent, forms of contraception. Subjective: Patient is without complaints. Ambulating, voiding after zavala removed. Tolerating a regular diet without nausea or vomiting. Normal lochia. Pain is well controlled with oral pain medications. Passing flatus. planning to pump and breast feed Objective: Laboratory Tests Test 03/24/18 05:59 Range/Units White Blood Count 17.1 H 4.3-11.0 10^3/uL Red Blood Count 3.60 L 4.35-5.85 10^6/uL Hemoglobin 10.7 L 11.5-16.0 G/DL Hematocrit 32 L 35-52 % Mean Corpuscular Volume 88 80-99 FL Mean Corpuscular Hemoglobin 30 25-34 PG Mean Corpuscular Hemoglobin Concent 34 32-36 G/DL Red Cell Distribution Width 13.2 10.0-14.5 % Platelet Count 201 130-400 10^3/uL Mean Platelet Volume 10.7 H 7.4-10.4 FL Neutrophils (%) (Auto) 81 H 42-75 % Lymphocytes (%) (Auto) 12 12-44 % Monocytes (%) (Auto) 7 0-12 % Eosinophils (%) (Auto) 0 0-10 % Basophils (%) (Auto) 0 0-10 % Neutrophils # (Auto) 13.8 H 1.8-7.8 X 10^3 Lymphocytes # (Auto) 2.0 1.0-4.0 X 10^3 Monocytes # (Auto) 1.2 H 0.0-1.0 X 10^3 Eosinophils # (Auto) 0.0 0.0-0.3 10^3/uL Basophils # (Auto) 0.0 0.0-0.1 10^3/uL 03/24/18 03/24/18 03/24/18 00:02 05:30 08:04 Temp 98.2 97.0 97.9 Pulse 98 89 70 Resp 18 18 16 B/P (MAP) 100/57 (71) 108/62 (77) 98/57 (71) Pulse Ox 98 98 97 O2 Delivery Room Air Room Air Room Air 03/23/18 23:59 Intake Total 2190 ml Output Total 725 ml Balance 1465 ml Physical Exam: General - Alert and oriented, no apparent distress Abdomen - Soft, appropriately tender to palpation, non-distended, fundus firm at umbilicus Incision - clean, dry and intact; no erythema or induration, no drainage Extremities - no edema, negative Chata's bilaterally [ Assessment: 1. post-operative day # 1, status post RLTCS. Recovering well, hemodynamically stable Plan: Routine post-operative care. Encourage breast feeding. Encourage ambulation. VTE prophylaxis: SCDs. Plan for discharge tomorrow Vitals - Labs Vital Signs - I&O Vital Signs Date Time Temp Pulse Resp B/P (MAP) Pulse Ox O2 Delivery O2 Flow Rate FiO2 03/24/18 08:04 97.9 70 16 98/57 (71) 97 Room Air 03/24/18 05:30 97.0 89 18 108/62 (77) 98 Room Air 03/24/18 00:02 98.2 98 18 100/57 (71) 98 Room Air 03/23/18 20:06 97.8 76 18 110/64 (79) 98 Room Air 03/23/18 17:10 98.8 03/23/18 16:00 98.8 97 18 135/83 (100) 98 Room Air 03/23/18 11:45 98.3 99 18 106/63 (77) 98 Room Air 03/23/18 11:00 98.8 03/23/18 10:03 96.4 85 18 119/82 (94) 100 Room Air I & O 03/24/18 06:59 Intake Total 4340 ml Output Total 2675 ml Balance 1665 ml Labs Laboratory Tests 03/24/18 05:59: White Blood Count 17.1H, Red Blood Count 3.60L, Hemoglobin 10.7L, Hematocrit 32L , Mean Corpuscular Volume 88, Mean Corpuscular Hemoglobin 30, Mean Corpuscular Hemoglobin Concent 34, Red Cell Distribution Width 13.2, Platelet Count 201, Mean Platelet Volume 10.7H, Neutrophils (%) (Auto) 81H, Lymphocytes (%) (Auto) 12, Monocytes (%) (Auto) 7, Eosinophils (%) (Auto) 0, Basophils (%) (Auto) 0, Neutrophils # (Auto) 13.8H, Lymphocytes # (Auto) 2.0, Monocytes # (Auto) 1.2H, Eosinophils # (Auto) 0.0, Basophils # (Auto) 0.0 Microbiology 03/23/18 Urine Culture - Preliminary, Resulted Sent To MOHINDER Amado DO Mar 24, 2018 08:11
[2018-03-24 12:03] VITALS: BP 96/62
[2018-03-24 16:51] VITALS: BP 123/74
[2018-03-24 20:59] VITALS: BP 111/66
[2018-03-25 03:16] VITALS: BP 107/62
[2018-03-25] MEDS: IBUPROFEN 600 MG (MOTRIN) TAB PO SCH ×2 (03:16→08:43)
[2018-03-25 08:00] VITALS: BP 116/79
[2018-03-25] MEDS ORDERED: ACHD5005 PO (08:36)
[2018-03-25] MEDS ORDERED: IBUP-844 PO (08:36)
--- NOTE | 2018-03-25 08:38 | Discharge Inst-Women's Service ---
Discharge Inst-Women's Serv Depart Medication/Instructions New, Converted or Re-Newed RX: RX on Chart Final Diagnosis previous section Consults/Follow Up Additional Follow Up: Yes (1 week for incision check/muna; 6 weeks for PP exam. Return to see me to discuss IUD vs Nexplanon vs depo provera.(after follows up with Dr. Vazquez)) Activity Activity: Activity as Tolerated (no lifting over 25 lbs) Driving Instructions: No Driving for 1 Week NO SMOKING: NO SMOKING Nothing Inside Vagina: No Douching, No [place], No Tampons Diet Discharge Diet: No Restrictions Symptoms to Report to : Bleeding Excessive, Pain Increased, Fever Over 101 Degrees F, Vaginal Bleeding Increase, Cramps in Feet or Legs, Vaginal Discharge Foul For Any Problems or Questions: Contact Your Physician Skin/Wound Care Infection Signs and Symptoms: Increased Redness, Foul Odor of Wound, Increased Drainage, Skin Itchy or Has a Rash, Increased Swelling, Temperature Above 101 F Operative Area Clean and Dry: Keep Incision Clean/Dry Stitches/Jacquie/Dermabond: Dermabond Bathing Instructions: MOHINDER Cheung DO Mar 25, 2018 08:38
[2018-03-25] MEDS: DOCUSATE SODIUM 100 MG (COLACE) CAP PO SCH (08:43)
[2018-03-25] MEDS: HYDROcodone/APAP 5 MG/325 MG (LORTAB) TAB PO PRN (08:48)
[2018-03-25 12:03] VITALS: BP 123/93
--- NOTE | 2018-03-30 11:59 | Physician Query-Final Dx ---
PENG DAMON 03/30/18 1159: Final Diagnosis Give Final Diagnosis Please give Final Diagnosis MOHINDER CASTLE DO 04/12/18 1715: Final Diagnosis Give Final Diagnosis previous section 39 week PENG DAMON Mar 30, 2018 11:59 MOHINDER CASTLE DO Apr 12, 2018 17:15
== END 2018-03-25 12:55 | disposition home or self-care (01) | DRG 765 ==
LOC: LDRP 06:02 → 3RD 14:49 → LDRP 14:49
PROVIDERS: ADMIT Obstetrics & Gynecology; ATTEND Obstetrics & Gynecology
PROC: 10D00Z1 Extraction of Products of Conception, Low, Open Approach (ICD-10-PCS; principal; 2018-03-23 07:29)
DX: O34.211 Maternal care for low transverse scar from previous cesarean delivery (principal); O40.3XX0 Polyhydramnios, third trimester, not applicable or unspecified; O69.81X0 Labor and delivery complicated by cord around neck, without compression, not applicable or unspecified; Z3A.39 39 weeks gestation of pregnancy; Z37.0 Single live birth
CPT/HCPCS: 36415; 81000; 85025; 86850; 86900; 86901; 87088; 94664

== ENCOUNTER 2023-04-17 07:33 | Emergency (ER) | payer MEDICAID ==
[~2023-04-17] VITALS: Ht 154.9 cm; Wt 72.5 kg
[~2023-04-17 07:33] MED LIST changes: -CITRIC ACID/SOB CIT (BICITRA) 30 ML UDC ONE; +IBUP-844 PO; -LACTATED RINGERS 1,000 ML IV ONE; -METOCLOPRAMIDE INJ 10 MG/2 ML (REGLAN) ONE; -NS (IVPB) 50 ML ONE; +PREN-142 PO; -ceFAZolin 1,000 MG (ANCEF) VIAL ONE; -raNItidine 50 MG/2 ML INJ (ZANTAC) ONE
[2023-04-17] MEDS ORDERED: LACTATED RINGERS 1,000 ML 1,000 ML IV ONE (08:45)
[2023-04-17] MEDS ORDERED: fentaNYL INJECTION 100 MCG/2 ML VIAL IVP ONE (08:45)
[2023-04-17] MEDS ORDERED: ONDANSETRON INJECTION 4 MG/2 ML (SDV) IVP ONE ×2 (08:45→15:30)
--- NOTE | 2023-04-17 08:54 | ED Abdominal Pain ---
General Chief Complaint: Abdominal/GI Problems Stated Complaint: LOWER RIGHT SIDE ABD PAIN Nursing Triage Note: PATIENT STATES SHE WOKE UP THIS AMAROUND 0430 WITH RIGHT SIDED LOWER ANTERIOR ABDOMINAL PAIN, ASSUMED IT WAS REALATED TO STARTING HER PERIOD SHE TOOK SOME MIDOL AROUND 530. PAIN CONTINUES UPON ARRIVAL WITH A RATING OF 9/10 ON PAIN SCALE. Source of Information: Patient Exam Limitations: No Limitations History of Present Illness Date Seen by Provider: Apr 17, 2023 Time Seen by Provider: 07:58 Initial Comments This pleasant 27-year-old young lady presents to the emergency room with primary complaint of right lower quadrant pain. She woke with the pain this morning. It is rather intense, especially with movement. She reports worsening with any movement including walking, deep breaths, riding in a car, etc. She denies any fever or chills. She first noticed the pain around 0400. She took Midol which was not helpful. She reports the pain feels different than menstrual cramping. She also vomited once this morning around 0600. She is no longer nauseated. She denies any urinary symptoms such as hematuria, dysuria, or frequency. She denies vaginal symptoms such as dyspareunia or vaginal discharge. Her last menstrual period started today. She has had trouble laying down because lying down increases the pain. She has a history of ovarian cyst with rupture but states this pain feels different and more intense. She admits to a remote history of chlamydia. She had repeat testing about 2 years ago and reportedly was negative. Neither she nor her partner have had any other partners in those 2 years since testing negative. Allergies and Home Medications Allergies Coded Allergies: No Known Drug Allergies (Unverified , 03/17/18) Patient Home Medication List Home Medication List Reviewed: Yes Doxycycline Hyclate (Doxycycline Hyclate) 100 Mg Tablet, 100 MG PO BID Prescribed by: THOMPSON BEAVER on 04/17/23 1543 Hydrocodone Bit/Acetaminophen (Lortab 5 Mg Tablet) 1 Tab Tab, 1-2 TAB PO Q4H PRN for PAIN-MODERATE Prescribed by: MOHINEDR CASTLE on 03/25/18 0836 Ibuprofen (Ibu) 600 Mg Tablet, 600 MG PO Q6H Prescribed by: MOHINDER CASTLE on 03/25/18 0836 Metronidazole (Metronidazole) 500 Mg Tablet, 500 MG PO BID Prescribed by: THOMPSON BEAVER on 04/17/23 154 Ondansetron (Ondansetron Odt) 4 Mg Tab.rapdis, 4 MG SL Q4H PRN for NAUSEA/VO MITING Prescribed by: THOMPSON BEAVER on 04/17/23 154 Vit No.124/Iron/FA ( Vitamin Tablet) 1 Each Tablet, 1 EACH PO DAILY, (Reported) Entered as Reported by: OLVIN SIMONS on 03/23/18 0624 Tramadol HCl (Tramadol HCl) 50 Mg Tablet, 50 MG PO Q6H PRN for PAIN-BREAKTHROUGH Prescribed by: THOMPSON BEAVER on 04/17/23 154 Review of Systems Review of Systems Constitutional: no symptoms reported EENTM: No Symptoms Reported Respiratory: No Symptoms Reported Cardiovascular: No Symptoms Reported Gastrointestinal: See HPI Genitourinary: See HPI Musculoskeletal: no symptoms reported Skin: no symptoms reported Psychiatric/Neurological: No Symptoms Reported Endocrine: No Symptoms Reported Hematologic/Lymphatic: No Symptoms Reported Past Pzmfwny-Srtdnm-Ropoel Hx Patient Social History Tobacco Use?: No Use of E-Cig and/or Vaping dev: No Alcohol Use?: No Pt feels they are or have been: No Immunizations Up To Date Tetanus Booster (TDap): Less than 5yrs Influenza Vaccine Up-to-Date: No; Not Current First/Initial COVID19 Vaccinat: NOT VACC Seasonal Allergies Seasonal Allergies: No Past Medical History Surgery/Hospitalization HX: OVARIAN CYSTS, 2 C SECTIONS Surgeries: Yes (cs) Section Respiratory: No Cardiac: No Neurological: No : No Last Menstrual Period: Apr 16, 2023 Reproductive Disorders: Yes Female Reproductive Disorders: Ovarian Cyst Sexually Transmitted Disease: Yes (Remote history of chlamydia) HIV/AIDS: No Genitourinary: No Gastrointestinal: Yes Gastroesophageal Reflux, Chronic Constipation, Chronic Diarrhea Musculoskeletal: No Endocrine: No HEENT: No Loss of Vision: Denies Hearing Impairment: Denies Cancer: No Psychosocial: No Integumentary: No Blood Disorders: No Adverse Reaction/Blood Tranf: No (N/A) Family Medical History No Pertinent Family Hx Physical Exam Vital Signs Vital Signs - First Documented 04/17/23 07:40 Temp 37.3 Pulse 96 Resp 20 B/P (MAP) 140/98 (112) Pulse Ox 100 O2 Delivery Room Air Capillary Refill : Less Than 3 Seconds Height/Weight/BMI Height: 5'1.00" Weight: 178lbs. 0.0oz. 80.061078dl; 30.00 BMI Method: General Appearance: WD/WN, no apparent distress HEENT: normal ENT inspection Neck: normal inspection Respiratory: lungs clear, normal breath sounds, no respiratory distress Cardiovascular: regular rate, rhythm, no edema, no murmur Gastrointestinal: soft, abnormal bowel sounds (Decreased); No distended; tenderness (Point tenderness to palpation and percussion in the right lower quadrant with positive Rovsing sign. Pain with straight leg raise on the right) Extremities: normal inspection, no pedal edema Neurologic/Psychiatric: no motor/sensory deficits, alert, normal mood/affect, oriented x 3 Skin: normal color, warm/dry Progress/Results/Core Measures Results/Orders Lab Results Laboratory Tests Test 04/17/23 07:45 04/17/23 08:49 04/17/23 15:10 Range/Units White Blood Count 13.6 H 4.3-11.0 10^3/uL Red Blood Count 5.15 H 3.80-5.11 10^6/uL Hemoglobin 14.9 11.5-16.0 g/dL Hematocrit 44 35-52 % Mean Corpuscular Volume 86 80-99 fL Mean Corpuscular Hemoglobin 29 25-34 pg Mean Corpuscular Hemoglobin Concent 34 32-36 g/dL Red Cell Distribution Width 12.3 10.0-14.5 % Platelet Count 256 130-400 10^3/uL Mean Platelet Volume 10.6 9.0-12.2 fL Immature Granulocyte % (Auto) 1 % Neutrophils (%) (Auto) 85 H 42-75 % Lymphocytes (%) (Auto) 9 L 12-44 % Monocytes (%) (Auto) 5 0-12 % Eosinophils (%) (Auto) 1 0-10 % Basophils (%) (Auto) 0 0-10 % Neutrophils # (Auto) 11.6 H 1.8-7.8 10^3/uL Lymphocytes # (Auto) 1.2 1.0-4.0 10^3/uL Monocytes # (Auto) 0.6 0.0-1.0 10^3/uL Eosinophils # (Auto) 0.1 0.0-0.3 10^3/uL Basophils # (Auto) 0.0 0.0-0.1 10^3/uL Immature Granulocyte # (Auto) 0.1 0.0-0.1 10^3/uL Sodium Level 138 135-145 MMOL/L Potassium Level 3.8 3.6-5.0 MMOL/L Chloride Level 107 98-107 MMOL/L Carbon Dioxide Level 21 21-32 MMOL/L Anion Gap 10 5-14 MMOL/L Blood Urea Nitrogen 9 7-18 MG/DL Creatinine 0.78 0.60-1.30 MG/DL Estimat Glomerular Filtration Rate 107 BUN/Creatinine Ratio 12 Glucose Level 98 70-105 MG/DL Calcium Level 9.4 8.5-10.1 MG/DL Corrected Calcium 9.0 8.5-10.1 MG/DL Total Bilirubin 1.2 H 0.1-1.0 MG/DL Aspartate Amino Transf (AST/SGOT) 19 5-34 U/L Alanine Aminotransferase (ALT/SGPT) 20 0-55 U/L Alkaline Phosphatase 69 40-136 U/L C-Reactive Protein High Sensitivity 0.23 0.00-0.50 MG/DL Total Protein 7.7 6.4-8.2 GM/DL Albumin 4.5 3.2-4.5 GM/DL Serum Test, Qualitative NEGATIVE NEGATIVE Urine Color YELLOW Urine Clarity CLEAR Urine pH 6.0 5-9 Urine Specific [place] 1.010 L 1.016-1.022 Urine Protein NEGATIVE NEGATIVE Urine Glucose (UA) NEGATIVE NEGATIVE Urine Ketones NEGATIVE NEGATIVE Urine Nitrite NEGATIVE NEGATIVE Urine Bilirubin NEGATIVE NEGATIVE Urine Urobilinogen 0.2 < = 1.0 MG/DL Urine Leukocyte Esterase NEGATIVE NEGATIVE Urine RBC (Auto) 3+ H NEGATIVE Urine RBC 2-5 H /HPF Urine WBC 2-5 /HPF Urine Squamous Epithelial Cells 2-5 /HPF Urine Crystals NONE /LPF Urine Bacteria NEGATIVE /HPF Urine Casts NONE /LPF Urine Mucus NEGATIVE /LPF Urine Culture Indicated NO Micro Results Microbiology 04/17/23 Genital Culture - Preliminary, Resulted See Comments 04/17/23 Wet Prep - Final, Resulted My Orders Orders - THOMPSON ENRIQUEZ MD Ondansetron Injection (Zofran Injectio (04/17/23 08:45) Fentanyl Inj (Sublimaze Injection) (04/17/23 08:45) Cbc With Automated Diff (04/17/23 08:43) Comprehensive Metabolic Panel (04/17/23 08:43) Hs C Reactive Protein (04/17/23 08:43) Hcg,Qualitative Serum (04/17/23 08:43) Ua Culture If Indicated (04/17/23 08:43) Ed Iv/Invasive Line Start (04/17/23 08:43) Lactated Ringers (Lr 1000 Ml Iv Solution (04/17/23 08:45) Ct Abdomen/Pelvis W (04/17/23 09:47) Iohexol Injection (Omnipaque 350 Mg/Ml 1 (04/17/23 10:00) Received Contrast (Hold Metformin- Contr (04/17/23 10:00) Ns (Ivpb) 100 Ml (Sodium Chloride 0.9% 1 (04/17/23 10:00) Us Non Ob Pelvis Comp/Transvag (04/17/23 10:31) Consult Physician (04/17/23 12:35) Morphine Injection (Morphine Injection (04/17/23 13:00) Ketorolac Injection (Toradol Injection) (04/17/23 15:30) Ceftriaxone Iv/Im (Ceftriaxone Iv/Im) (04/17/23 15:23) Ondansetron Injection (Zofran Injectio (04/17/23 15:30) Wet Prep (04/17/23 15:24) Neisseria Gonorrhea Swab (04/17/23 15:24) Genital Culture (04/17/23 15:24) Chlamydia Trachomatis Swab (04/17/23 15:24) Iv Push Internal Grinding Machine Operator Ed (04/17/23 ) Medications Given in ED Vital Signs/I&O 04/17/23 04/17/23 07:40 16:08 Temp 37.3 Pulse 96 85 Resp 20 18 B/P (MAP) 140/98 (112) 99/57 Pulse Ox 100 99 O2 Delivery Room Air Blood Pressure Mean: 112 Progress Progress Note #1: Time: 09:50 Progress Note Patient was interviewed and examined at 0758. Symptoms were rather concerning for possible appendicitis as she had multiple signs of peritonitis accompanied by vomiting and decreased bowel sounds. Labs were obtained and interpreted by me. CBC demonstrated mild leukocytosis with WBC of 13.6. CMP, CRP, urinalysis, and serum test were all grossly unremarkable. Given signs and symptoms of appendicitis and leukocytosis, CT evaluation to rule out appendicitis or other pathologies was discussed. We discussed risks and benefits with risks including cost and radiation exposure. Benefits included early detection of appendicitis or other surgical pathology. Patient elected to proceed with CT exam. Pain was treated with fentanyl. Nausea was treated with Zofran. Progress Note #2: Time: 13:[address] scan was reviewed by me. I did not appreciate the appendix. There was a large complicated cystic lesion superior to and to the right of the uterus. Radiologist's report was reviewed. There was concern for complicated cyst with possible tubo-ovarian abscess. This was followed by ultrasound. I discussed ultrasound findings with the cable installation technician and reviewed the radiologist's report. Tubo-ovarian abscess could not be ruled out. Patient's pain was retreated with morphine. She reported the transabdominal portion of the ultrasound was fairly painful. I have consulted Dr. Booth, flue lining dipper on-call, who will present to the emergency room to evaluate the patient. She will determine at that time whether patient should be managed in the outpatient or inpatient setting. Patient has been provided with an update to the plan. Progress Note #3: Time: 15:30 Progress Note Patient received consultation with Dr. Booth in the emergency room. She performed pelvic exam and collected specimens. Based on Dr. Booth's recommendations, patient is being treated with Rocephin in the emergency room. She has been prescribed doxycycline and metronidazole for outpatient treatment. [facility]. Patient's symptoms were further treated with Zofran and Toradol. Patient's length of stay and discharge was delayed due to the wait for specialty consultation and the stepwise progression of imaging studies. See discharge instructions for further discussions. Diagnostic Imaging Diagonstic Imaging: CT Plain Films/CT/US/NM/MRI: abdomen, pelvis Comments NAME: MASOOD CARIAS [facility] REC#: [id number] PT STATUS: REG ER : 1995 PHYSICIAN: THOMPSON ENRIQUEZ MD ADMIT DATE: 04/17/23/ER Draft Date of Exam:04/17/23 CT ABDOMEN/PELVIS W PROCEDURE: CT abdomen and pelvis with contrast. TECHNIQUE: Multiple contiguous axial images were obtained through the abdomen and pelvis after administration of intravenous contrast. Auto Exposure Controls were utilized during the CT exam to meet ALARA standards for radiation dose reduction. All CT scans use one or more of the following dose optimizing techniques: automated exposure control, MA and/or KvP adjustment based on patient size and exam type or iterative reconstruction. INDICATION: Right-sided lower abdominal pain. COMPARISON: No prior studies are available for comparison. The lung bases are clear. The liver and gallbladder are unremarkable. There is no biliary ductal dilatation. The pancreas and spleen are unremarkable. No adrenal mass is identified. The kidneys are without calculi or hydronephrosis. Aorta is nonaneurysmal. There is a large fat-containing umbilical hernia. The bowel loops appear to be nonobstructed. The appendix is visualized and unremarkable. The uterus and bladder are unremarkable. There is a mass in the midline pelvis just above the uterus. There is a large cystic component in the midline measuring 4.1 cm. There is surrounding inflammation. There appears to be some surrounding free fluid present as well. There is minimal free fluid surrounding the liver. No other abnormalities are identified. IMPRESSION: 1. Complex pelvic mass. This is likely ovarian. There is a large amount of surrounding inflammation present and a tubo-ovarian abscess cannot be entirely excluded. A pelvic sonography may be useful for better characterization. No other significant abnormality is seen. Dictated on workstation # [id number] Dict: 04/17/23 1015 Trans: 04/17/23 1021 [facility] [id number] Interpreted by: GEOVANNY DAMON MD Diagonstic Imaging: Ultrasound Plain Films/CT/US/NM/MRI: pelvis Comments NAME: MASOOD CARIAS [facility] REC#: [id number] PT STATUS: REG ER : 1995 PHYSICIAN: THOMPSON ENRIQUEZ MD ADMIT DATE: 04/17/23/ER Draft Date of Exam:04/17/23 US NON OB PELVIS COMP/TRANSVAG PROCEDURE: Pelvic comp/transvaginal sonogram. TECHNIQUE: Complete transabdominal and transvaginal pelvic ultrasound was performed. In addition, limited pelvic Doppler was performed. INDICATION: Abnormal CT scan demonstrating a complex pelvic mass. Study was performed for further evaluation. CORRELATION is made with CT study earlier same day. Uterus is anteverted measuring 9.3 x 5.0 x 5.5 cm. Endometrium is 5 mm in thickness. The left ovary could not be visualized perhaps due to overlying bowel gas. Right ovary measures 5.7 x 4.0 x 4.1 cm. Adjacent to the right ovary there is an area of hypoechoic heterogeneity with a cystic component, correlating with the CT abnormality. This area measures approximately 4.3 x 2.7 cm. A small tubo-ovarian abscess could not be entirely excluded. There is a small amount of free fluid present. IMPRESSION: A complex area of heterogeneity adjacent to the right ovary, nonspecific but perhaps representing tubo-ovarian abscess, in light of the CT findings. No other significant abnormality is seen. Dictated on workstation # [id number] Dict: 04/17/23 1244 Trans: 04/17/23 1251 [facility] [id number] Interpreted by: GEOVANNY DAMON MD Departure Impression Primary Impression: Tubo-ovarian abscess Additional Impressions: Right lower quadrant pain Nausea & vomiting Qualified Codes: R11.2 - Nausea with vomiting, unspecified Disposition: 01 HOME, SELF-CARE Condition: Stable Departure-Patient Inst. Decision time for Depature: 15:32 Referrals: NO,LOCAL PHYSICIAN (PCP/Family) Primary Care Physician Patient Instructions: Ovarian Cyst ED, Tuboovarian Abscess Add. Discharge Instructions: Complete your antibiotics as prescribed. Do not get while on these medications. Avoid alcohol while on the medications. Doxycycline may cause sun sensitivity. Take your antibiotics with food or milk to avoid upset stomach. Use the Zofran (ondansetron) as prescribed for nausea or vomiting. For pain you may take ibuprofen up to 600 mg every 6 hours as needed. Add Tylenol (acetaminophen) up to 1000 mg every 6 hours as needed for additional pain relief. For more severe pain or pain not controlled well by these [id number] medications, add Ultram (tramadol) as prescribed. Please be advised Ultram may cause drowsiness so do not drive, operate machinery, or make important decisions while on Ultram. Ultram may also cause c onstipation, so you may wish to use a stool softener such as Colace while taking Ultram. You need to follow-up in the women's clinic within the next week. Please call [phone] Wednesday morning to schedule an appointment. Please be sure to tell them you were instructed by Dr. Booth to schedule a follow-up appointment within the next week during your ER visit. Observe vaginal/pelvic rest until you are cleared in your follow-up appointment. This includes avoiding anything vaginally such as tampon use, intercourse, etc. You will need to review culture results and your follow-up appointment before being released from pelvic rest. Return to the ER if you have worsening symptoms despite following these instructions or if you develop other symptoms such as uncontrollable pain, fever, etc. All discharge instructions reviewed with patient and/or family. Voiced understanding. Scripts Metronidazole (Metronidazole) 500 Mg Tablet 500 MG PO BID, #28 TAB Prov: THOMPSON ENRIQUEZ MD 04/17/23 Doxycycline Hyclate (Doxycycline Hyclate) 100 Mg Tablet 100 MG PO BID, #28 TAB 0 Refills Prov: THOMPSON ENRIQUEZ MD 04/17/23 Ondansetron (Ondansetron Odt) 4 Mg Tab.rapdis 4 MG SL Q4H PRN for NAUSEA/VOMITING, #10 TAB 1 Refill Prov: THOMPSON ENRIQUEZ MD 04/17/23 Tramadol HCl (Tramadol HCl) 50 Mg Tablet 50 MG PO Q6H PRN for PAIN-BREAKTHROUGH, #15 TAB Prov: THOMPSON ENRIQUEZ MD 04/17/23 Copy Copies To 1: DAMIEN TOVAR JOSHUA T MD Apr 17, 2023 08:54
[2023-04-17 09:17] LABS: CLARITY,URINE CLEAR; COLOR,URINE YELLOW; GLUCOSE, URINE (UA) NEGATIVE (NEGATIVE); KETONES,URINE NEGATIVE (NEGATIVE); NITRITE,URINE NEGATIVE (NEGATIVE); PROTEIN,URINE NEGATIVE (NEGATIVE)
[2023-04-17 09:18] LABS: BACTERIA,URINE NEGATIVE /HPF; BILIRUBIN,URINE NEGATIVE (NEGATIVE); LEUKOCYTE ESTERASE ,URINE NEGATIVE (NEGATIVE)
[2023-04-17 09:26] LABS: BASOPHILS % (AUTO) 0 % (0-10); EOSINOPHILS # (AUTO) 0.1 10^3/uL (0.0-0.3); EOSINOPHILS % (AUTO) 1 % (0-10); HEMATOCRIT 44 % (35-52); HEMOGLOBIN 14.9 g/dL (11.5-16.0); LYMPHOCYTES # (AUTO) 1.2 10^3/uL (1.0-4.0); LYMPHOCYTES % (AUTO) 9 % (12-44); MEAN CORPUSCULAR HEMOGLOBIN 29 pg (25-34); MEAN CORPUSCULAR HGB CONC 34 g/dL (32-36); MEAN CORPUSCULAR VOLUME 86 fL (80-99); MEAN PLATELET VOLUME 10.6 fL (9.0-12.2); MONOCYTES # (AUTO) 0.6 10^3/uL (0.0-1.0); MONOCYTES % (AUTO) 5 % (0-12); NEUTROPHILS # (AUTO) 11.6 10^3/uL (1.8-7.8); NEUTROPHILS % (AUTO) 85 % (42-75); PLATELET COUNT 256 10^3/uL (130-400); WHITE BLOOD COUNT 13.6 10^3/uL (4.3-11.0)
[2023-04-17 09:28] LABS: ALBUMIN 4.5 GM/DL (3.2-4.5); POTASSIUM 3.8 MMOL/L (3.6-5.0)
[2023-04-17 09:29] LABS: CALCIUM 9.4 MG/DL (8.5-10.1)
[2023-04-17 09:30] LABS: TOTAL PROTEIN 7.7 GM/DL (6.4-8.2)
[2023-04-17 09:32] LABS: BILIRUBIN,TOTAL 1.2 MG/DL (0.1-1.0)
[2023-04-17 09:34] LABS: CREATININE SERUM 0.78 MG/DL (0.60-1.30)
[2023-04-17] MEDS ORDERED: NS 100 ML (IVPB) BAG IV ONE (10:00)
[2023-04-17] MEDS ORDERED: HOLD METFORMIN - RECEIVED CONTRAST 20 ML VIAL IV SCH (10:00)
[2023-04-17] MEDS ORDERED: IOHEXOL 350 MG/ML 100 ML (OMNIPAQUE 350) VIAL IV ONE (10:00)
--- NOTE | 2023-04-17 10:22 | Diagnostic Imaging Report ---
PROCEDURE: CT abdomen and pelvis with contrast. TECHNIQUE: Multiple contiguous axial images were obtained through the abdomen and pelvis after administration of intravenous contrast. Auto Exposure Controls were utilized during the CT exam to meet ALARA standards for radiation dose reduction. All CT scans use one or more of the following dose optimizing techniques: automated exposure control, MA and/or KvP adjustment based on patient size and exam type or iterative reconstruction. INDICATION: Right-sided lower abdominal pain. COMPARISON: No prior studies are available for comparison. The lung bases are clear. The liver and gallbladder are unremarkable. There is no biliary ductal dilatation. The pancreas and spleen are unremarkable. No adrenal mass is identified. The kidneys are without calculi or hydronephrosis. Aorta is nonaneurysmal. There is a large fat-containing umbilical hernia. The bowel loops appear to be nonobstructed. The appendix is visualized and unremarkable. The uterus and bladder are unremarkable. There is a mass in the midline pelvis just above the uterus. There is a large cystic component in the midline measuring 4.1 cm. There is surrounding inflammation. There appears to be some surrounding free fluid present as well. There is minimal free fluid surrounding the liver. No other abnormalities are identified. IMPRESSION: 1. Complex pelvic mass. This is likely ovarian. There is a large amount of surrounding inflammation present and a tubo-ovarian abscess cannot be entirely excluded. A pelvic sonography may be useful for better characterization. No other significant abnormality is seen. Dictated by: Dictated on workstation # [id number]
--- NOTE | 2023-04-17 12:51 | Diagnostic Imaging Report ---
PROCEDURE: Pelvic comp/transvaginal sonogram. TECHNIQUE: Complete transabdominal and transvaginal pelvic ultrasound was performed. In addition, limited pelvic Doppler was performed. INDICATION: Abnormal CT scan demonstrating a complex pelvic mass. Study was performed for further evaluation. CORRELATION is made with CT study earlier same day. Uterus is anteverted measuring 9.3 x 5.0 x 5.5 cm. Endometrium is 5 mm in thickness. The left ovary could not be visualized perhaps due to overlying bowel gas. Right ovary measures 5.7 x 4.0 x 4.1 cm. Adjacent to the right ovary there is an area of hypoechoic heterogeneity with a cystic component, correlating with the CT abnormality. This area measures approximately 4.3 x 2.7 cm. A small tubo-ovarian abscess could not be entirely excluded. There is a small amount of free fluid present. IMPRESSION: A complex area of heterogeneity adjacent to the right ovary, nonspecific but perhaps representing tubo-ovarian abscess, in light of the CT findings. No other significant abnormality is seen. Dictated by: Dictated on workstation # [id number]
[2023-04-17] MEDS ORDERED: morphine INJ 4 MG/ML 1 ML (VIAL/SYRINGE) IVP ONE (13:00)
[2023-04-17] MEDS ORDERED: cefTRIAXone IV/IM 1,000 MG in NS (IVPB) 50 ML 50 ML IV STA (15:23)
[2023-04-17] MEDS ORDERED: KETOROLAC INJ 30 MG/ML VIAL IVP ONE (15:30)
[2023-04-17] MEDS ORDERED: ONDA4TAB11 SL (15:43)
[2023-04-17] MEDS ORDERED: DOXY100T2 PO (15:43)
[2023-04-17] MEDS ORDERED: METR-145 PO (15:43)
[2023-04-17] MEDS ORDERED: TRAM50TA3 PO (15:43)
--- NOTE | 2023-04-17 16:00 | Consultation ---
History of Present Illness History of Present Illness Patient Consulted On(luciana/time) 04/17/23 15:45 Date Seen by Provider: Apr 17, 2023 Time Seen by Provider: 15:00 Reason for Visit: Abdominal / Pelvic pain History of Present Illness Patient is a 27 yo female who presented to the ED for abdominal pain. Gynecology was consulted for evaluation and management of reported tubo-ovarian abscess noted on pelvic imaging. Patient reports onset of RLQ abdominal pain this morning associated with onset of her menstrual period today. States she usually has RLQ abdominal pain/cramping on the first day of her menstrual periods. She notes that although her current pain is similar to her usual menstrual pain, it is more severe today. Pain was not relieved with usual Midol at home, and was associated with nausea and vomiting x1 this morning. Pain and nausea have now improved s/p IV morphine and zofran in the ED. She denies any abnormal vaginal discharge or bleeding. She denies any fevers, chills, dyspareunia, or pelvic pain unrelated to her menstrual periods. She is sexually active with only one skilled nursing male partner. She notes hx of Chlamydia about 5 years ago, with her current partner, that was treated. She also notes hx of bacterial vaginosis 2 years ago that was treated. She states that she was told that she had 4 right ovarian cysts 2 years ago, and was offered surgical management, but did not desire surgery at that time. She was therefore started on oral contraceptives for management at that time, but she self-discontinued use after about 6 months. She denies any CP, SOB, palpitations, BURGESS, light-headedness, or dizziness. 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 partner Contraception: none Hx of right ovarian cysts Allergies and Home Medications Allergies Coded Allergies: No Known Drug Allergies (Unverified , 03/17/18) Patient Home Medication List Home Medication List Reviewed: Yes Doxycycline Hyclate (Doxycycline Hyclate) 100 Mg Tablet, 100 MG PO BID Prescribed by: THOMPSON BEAVER on 04/17/23 3694 Hydrocodone Bit/Acetaminophen (Lortab 5 Mg Tablet) 1 Tab Tab, 1-2 TAB PO Q4H PRN for PAIN-MODERATE Prescribed by: MOHINDER CASTLE on 03/25/18 0836 Ibuprofen (Ibu) 600 Mg Tablet, 600 MG PO Q6H Prescribed by: MOHINDER CASTLE on 03/25/18 0836 Metronidazole (Metronidazole) 500 Mg Tablet, 500 MG PO BID Prescribed by: THOMPSON BEAVER on 04/17/23 1543 Ondansetron (Ondansetron Odt) 4 Mg Tab.rapdis, 4 MG SL Q4H PRN for NAUSEA/VOMITING Prescribed by: THOMPSON BEAVER on 04/17/23 1543 Vit No.124/Iron/FA ( Vitamin Tablet) 1 Each Tablet, 1 EACH PO DAILY, (Reported) Entered as Reported by: OLVIN SIMONS on 03/23/18 0624 Tramadol HCl (Tramadol HCl) 50 Mg Tablet, 50 MG PO Q6H PRN for PAIN-BREAKTHROUGH Prescribed by: THOMPSON BEAVER on 04/17/23 1544 Past Bcldoxu-Nubvqf-Vwwkzv Hx Patient Social History Tobacco Use?: No Use of E-Cig and/or Vaping dev: No Alcohol Use?: No Pt feels they are or have been: No Immunizations Up To Date Tetanus Booster (TDap): Less than 5yrs Influenza Vaccine Up-to-Date: No; Not Current First/Initial COVID19 Vaccinat: NOT VACC Seasonal Allergies Seasonal Allergies: No Past Medical History Surgery/Hospitalization HX: OVARIAN CYSTS, 2 C SECTIONS Surgeries: Yes (cs) Section Respiratory: No Cardiac: No Neurological: No : No Last Menstrual Period: Apr 16, 2023 Reproductive Disorders: Yes Female Reproductive Disorders: Ovarian Cyst Sexually Transmitted Disease: Yes (Remote history of chlamydia) HIV/AIDS: No Genitourinary: No Gastrointestinal: Yes Gastroesophageal Reflux, Chronic Constipation, Chronic Diarrhea Musculoskeletal: No Endocrine: No HEENT: No Loss of Vision: Denies Hearing Impairment: Denies Cancer: No Psychosocial: No Integumentary: No Blood Disorders: No Adverse Reaction/Blood Tranf: No (N/A) Family Medical History No Pertinent Family Hx Review of Systems-General Constitutional: see HPI EENTM: see HPI Respiratory: see HPI Gastrointestinal: see HPI Genitourinary: see HPI : No Musculoskeletal: see HPI Skin: see HPI Psychiatric/Neurological: See HPI Physical Exam-General Problems Physical Exam Vital Signs Vital Signs - First Documented 04/17/23 07:40 Temp 37.3 Pulse 96 Resp 20 B/P (MAP) 140/98 (112) Pulse Ox 100 O2 Delivery Room Air Capillary Refill : Less Than 3 Seconds General Appearance: no apparent distress Eyes: Bilateral Eye EOMI Respiratory: no respiratory distress, no accessory muscle use Cardiovascular: normal peripheral pulses, no edema Gastrointestinal: soft, no organomegaly, no pulsatile mass, tenderness (lower abdomen; right > left) Genital/Rectal: normal vaginal exam, other (normal appearance of the external genitalia, vagina, and cervix. Non-inflammed. ~ 10 mL of thin dark blood in the vagina was cleaned. No abnormal discharge. Right adnexal tenderness to palpation on exam without palpable adnexal masses. Moderate fullness of the left adnexa and mild tenderness to palpation. No uterine of cervical motion tenderness.) Back: no CVA tenderness Extremities: normal range of motion, non-tender Neurologic/Psychiatric: no motor/sensory deficits, alert, normal mood/affect, oriented x 3 Skin: normal color, warm/dry Comments Laboratory Tests Test 04/17/23 07:45 04/17/23 08:49 04/17/23 15:10 Range/Units White Blood Count 13.6 H 4.3-11.0 10^3/uL Red Blood Count 5.15 H 3.80-5.11 10^6/uL Hemoglobin 14.9 11.5-16.0 g/dL Hematocrit 44 35-52 % Mean Corpuscular Volume 86 80-99 fL Mean Corpuscular Hemoglobin 29 25-34 pg Mean Corpuscular Hemoglobin Concent 34 32-36 g/dL Red Cell Distribution Width 12.3 10.0-14.5 % Platelet Count 256 130-400 10^3/uL Mean Platelet Volume 10.6 9.0-12.2 fL Immature Granulocyte % (Auto) 1 % Neutrophils (%) (Auto) 85 H 42-75 % Lymphocytes (%) (Auto) 9 L 12-44 % Monocytes (%) (Auto) 5 0-12 % Eosinophils (%) (Auto) 1 0-10 % Basophils (%) (Auto) 0 0-10 % Neutrophils # (Auto) 11.6 H 1.8-7.8 10^3/uL Lymphocytes # (Auto) 1.2 1.0-4.0 10^3/uL Monocytes # (Auto) 0.6 0.0-1.0 10^3/uL Eosinophils # (Auto) 0.1 0.0-0.3 10^3/uL Basophils # (Auto) 0.0 0.0-0.1 10^3/uL Immature Granulocyte # (Auto) 0.1 0.0-0.1 10^3/uL Sodium Level 138 135-145 MMOL/L Potassium Level 3.8 3.6-5.0 MMOL/L Chloride Level 107 98-107 MMOL/L Carbon Dioxide Level 21 21-32 MMOL/L Anion Gap 10 5-14 MMOL/L Blood Urea Nitrogen 9 7-18 MG/DL Creatinine 0.78 0.60-1.30 MG/DL Estimat Glomerular Filtration Rate 107 BUN/Creatinine Ratio 12 Glucose Level 98 70-105 MG/DL Calcium Level 9.4 8.5-10.1 MG/DL Corrected Calcium 9.0 8.5-10.1 MG/DL Total Bilirubin 1.2 H 0.1-1.0 MG/DL Aspartate Amino Transf (AST/SGOT) 19 5-34 U/L Alanine Aminotransferase (ALT/SGPT) 20 0-55 U/L Alkaline Phosphatase 69 40-136 U/L C-Reactive Protein High Sensitivity 0.23 0.00-0.50 MG/DL Total Protein 7.7 6.4-8.2 GM/DL Albumin 4.5 3.2-4.5 GM/DL Serum Test, Qualitative NEGATIVE NEGATIVE Urine Color YELLOW Urine Clarity CLEAR Urine pH 6.0 5-9 Urine Specific Gary 1.010 L 1.016-1.022 Urine Protein NEGATIVE NEGATIVE Urine Glucose (UA) NEGATIVE NEGATIVE Urine Ketones NEGATIVE NEGATIVE Urine Nitrite NEGATIVE NEGATIVE Urine Bilirubin NEGATIVE NEGATIVE Urine Urobilinogen 0.2 < = 1.0 MG/DL Urine Leukocyte Esterase NEGATIVE NEGATIVE Urine RBC (Auto) 3+ H NEGATIVE Urine RBC 2-5 H /HPF Urine WBC 2-5 /HPF Urine Squamous Epithelial Cells 2-5 /HPF Urine Crystals NONE /LPF Urine Bacteria NEGATIVE /HPF Urine Casts NONE /LPF Urine Mucus NEGATIVE /LPF Urine Culture Indicated NO [facility], [place], [place] NAME: MASOOD CARIAS [facility] REC#: [id number] PT STATUS: REG ER : 1995 PHYSICIAN: THOMPSON ENRIQUEZ MD ADMIT DATE: 04/17/23/ER Draft Date of Exam:04/17/23 US NON OB PELVIS COMP/TRANSVAG PROCEDURE: Pelvic comp/transvaginal sonogram. TECHNIQUE: Complete transabdominal and transvaginal pelvic ultrasound was performed. In addition, limited pelvic Doppler was performed. INDICATION: Abnormal CT scan demonstrating a complex pelvic mass. Study was performed for further evaluation. CORRELATION is made with CT study earlier same day. Uterus is anteverted measuring 9.3 x 5.0 x 5.5 cm. Endometrium is 5 mm in thickness. The left ovary could not be visualized perhaps due to overlying bowel gas. Right ovary measures 5.7 x 4.0 x 4.1 cm. Adjacent to the right ovary there is an area of hypoechoic heterogeneity with a cystic component, correlating with the CT abnormality. This area measures approximately 4.3 x 2.7 cm. A small tubo-ovarian abscess could not be entirely excluded. There is a small amount of free fluid present. IMPRESSION: A complex area of heterogeneity adjacent to the right ovary, nonspecific but perhaps representing tubo-ovarian abscess, in light of the CT findings. No other significant abnormality is seen. Dictated on workstation # [id number] Dict: 04/17/23 1244 Trans: 04/17/23 1251 [facility] [id number] Interpreted by: GEOVANNY DAMON MD Electronically signed by: Assessment/Plan Assessment/Plan Admission Diagnosis/Plan 27 yo female with tubo-ovarian abscess based on pelvic imaging. Patient is clinically stable. Pain is well controlled. Plan is for outpatient antibiotics treatment and pain management from a gynecologic standpoint - Pelvic exam performed, and is as noted. Pelvic ultrasound preliminary report reviewed. - Recommend treatment with IV Rocephin 1gm x1 dose in the ED today, followed by Doxycycline 100mg PO BID x14 days and Flagyl 500mg PO BID x14 days - Recommend Zofran ODT PRN for nausea - Patient instructed to call clinic on Wednesday04/19/23 to schedule follow-up appointment within one week of today's ED visit - Discussed pain management with Tylenol/Ibuprofen at home - ED return precautions discussed with pt - Consider f/u pelvic ultrasound in 2-3 months TIFFANY DUNN MD Apr 17, 2023 16:00
[2023-04-17 16:08] VITALS: BP 99/57
== END 2023-04-17 16:09 | disposition home or self-care (01) ==
LOC: EDUNIT# 07:33 → ER 07:36
DX: N70.93 Salpingitis and oophoritis, unspecified (principal); R11.2 Nausea with vomiting, unspecified; Z28.310 Unvaccinated for COVID-19
CPT/HCPCS: 36415; 74177; 76830; 76856; 80053; 81000; 84703; 85025; 86141; 87070; 87077; 87186; 87205; 87210; 87491; 87591; 96361; 96374; 96375; 96376